=== PATIENT | male | born 1960 | race Caucasian/White ===

== ENCOUNTER 2019-08-09 05:21 | Emergency (ER) | payer SELFPAY ==
[~2019-08-09] VITALS: Ht 167.6 cm; Wt 72.6 kg
[2019-08-09 05:28] VITALS: BP 196/118
== END 2019-08-09 06:55 | disposition home or self-care (01) ==
LOC: ED 05:21
DX: M10.9 Gout, unspecified (principal); I10 Essential (primary) hypertension; Z88.0 Allergy status to penicillin
CPT/HCPCS: J1885